=== PATIENT | female | born 1965 | race Two or more races ===

== ENCOUNTER 2018-03-13 12:47 | Day surgery (SDC) | payer OTHER ==
[2018-03-13] MEDS ORDERED: MIDAZOLAM 1 MG/ML 2 ML INJ (15:36)
[2018-03-13] MEDS ORDERED: FENTAnyl 50 MCG/ML VIAL (15:36)
== END 2018-03-13 16:29 | disposition home or self-care (01) ==
LOC: GIL 12:47
DX: Z12.11 Encounter for screening for malignant neoplasm of colon (principal); D12.6 Benign neoplasm of colon, unspecified
CPT/HCPCS: 45380; 88305

== ENCOUNTER 2018-11-25 10:53 | Emergency (ER) | payer OTHER ==
[2018-11-25] MEDS: ACETAMINOPHEN 325 MG TAB PO (12:19)
== END 2018-11-25 13:40 | disposition home or self-care (01) ==
LOC: FTE 10:53
DX: S92.354A Nondisplaced fracture of fifth metatarsal bone, right foot, initial encounter for closed fracture (principal); X58.XXXA Exposure to other specified factors, initial encounter; Y92.9 Unspecified place or not applicable
CPT/HCPCS: 73630; 99283-25